=== PATIENT | female | born 1975 | race Caucasian/White ===

== ENCOUNTER 2018-09-18 06:48 | Outpatient (CLI) | payer BC ==
--- NOTE | 2018-09-18 08:34 | ULT ---
THYROID ULTRASOUND: DATE: 09/18/2018. COMPARISON: 02/12/2016. HISTORY: Evaluate thyroid nodule. TECHNIQUE: Multiplanar, quintero scale sonographic imaging of the thyroid gland obtained. FINDINGS: Thyroid isthmus measures in the 2 mm range, within normal limits. Right lobe measures 4.4 x 1.5 x 1. 4 cm and the left lobe measures 5.2 x 2.0 x 1.7 cm. Tiny hypoechoic noted in superior aspect of the right lobe measuring 6 x 4 x 4 mm. This is of doubtful clinical significance. No additional nodule is seen on the right. There is a heterogeneous isoechoic nodule in the left lobe with internal foci of cystic change. This nodule is solid in nature and measures 2.2 x 1.6 x 1.5 cm. It is not significantly changed when com pared to the prior exam. IMPRESSION: Stable thyroid ultrasound - no new nodules. POS: OFF
== END 2018-09-18 06:49 | disposition home or self-care (01) ==
LOC: BICULT 06:48
PROVIDERS: ATTEND Otolaryngology Otolaryngic Allergy
DX: E04.1 Nontoxic single thyroid nodule (principal)
CPT/HCPCS: 76536